=== PATIENT | male | born 1965 | race Caucasian/White ===

== ENCOUNTER 2018-03-18 14:24 | Emergency (ER) | payer SELFPAY ==
[2018-03-18] MEDS ORDERED: Adacel (T-DAP) 0.5 ML VIAL ONE (15:54)
[2018-03-18] MEDS ORDERED: Lidocaine 1% (PF) 30 ML VIAL ONE ×2 (15:54→16:02)
== END 2018-03-18 17:29 | disposition home or self-care (01) ==
LOC: ERS 14:24
DX: S61.215A Laceration without foreign body of left ring finger without damage to nail, initial encounter (principal); F17.210 Nicotine dependence, cigarettes, uncomplicated; Z71.6 Tobacco abuse counseling; Z23 Encounter for immunization; W25.XXXA Contact with sharp glass, initial encounter
CPT/HCPCS: 12001; 90471; 90715; 99406; J2001

== ENCOUNTER 2018-06-16 10:14 | Emergency (ER) | payer SELFPAY ==
[2018-06-16] MEDS ORDERED: Proparacaine 0.5% Opth 15 ML BOT ONE (11:21)
[2018-06-16] MEDS ORDERED: Fluorescein Opthalmic Strip ONE (11:21)
[2018-06-16] MEDS ORDERED: valACYclovir 500 MG TAB PO SCH (11:30)
== END 2018-06-16 11:43 | disposition home or self-care (01) ==
LOC: ERS 10:14
DX: B02.9 Zoster without complications (principal); F32.9 Major depressive disorder, single episode, unspecified; F17.210 Nicotine dependence, cigarettes, uncomplicated; Z71.6 Tobacco abuse counseling; Z79.899 Other long term (current) drug therapy
CPT/HCPCS: 99406

== ENCOUNTER 2018-10-16 01:33 | Outpatient (CLI) | payer OTHER ==
[2018-10-16 10:40] LABS: Hemoglobin 14.4 g/dL (14.0-18.0); Mean Corpuscular HGB CONC 31.9 g/dL (32.0-36.0); Mean Corpuscular Hemoglobin 31.1 pg (27.0-31.0); Mean Corpuscular Volume 97.7 fL (78.0-98.0); Platelet Count 256 thou/uL (130-400); RBC Distribution Width 12.5 % (11.5-14.5); Red Blood Cell (RBC) Count 4.62 mill/uL (4.70-6.10)
[2018-10-16 10:48] LABS: INR-International Normal Ratio 0.9; Prothrombin Time 12.4 SEC (12.0-14.7)
[2018-10-16 10:59] LABS: Anion Gap 15 mmol/L (10-20); BUN (Urea Nitrogen) 12 mg/dL (8.4-25.7); Calc. Creatinine Clearance 0 mL/min (70-130); Calcium 9.3 mg/dL (7.8-10.44); Carbon Dioxide 23 mmol/L (22-29); Chloride 104 mmol/L (98-107); Estimated GFR-MDRD Greater than 90; Glucose 81 mg/dL (70-105); Potassium 4.2 mmol/L (3.5-5.1); Sodium 138 mmol/L (136-145)
== END 2018-10-16 01:34 | disposition home or self-care (01) ==
LOC: LABBT 01:33
PROVIDERS: ATTEND Orthopaedic Surgery
DX: Z01.818 Encounter for other preprocedural examination (principal)
CPT/HCPCS: 80048; 85027; 85610; 86850; 86900; 86901; 87081; 93005; 93010

== ENCOUNTER 2018-10-16 14:30 | Inpatient (IN) | payer OTHER ==
[2018-10-16 09:16] VITALS: BMI 26.9
[2018-10-21] MEDS ORDERED: Fentanyl 100 MCG/2 ML VIAL ONE ×4 (11:06→13:57)
[2018-10-21] MEDS ORDERED: Lidocaine 1.5% w/Epi 1:200K 30 ML VIAL (Epid Use) ONE (11:06)
[2018-10-21] MEDS ORDERED: Midazolam HCl 2 mg/2 ml Vial ONE (11:06)
[2018-10-21] MEDS ORDERED: Ropivacaine 0.2% HCl/PF 20 ML ONE (11:13)
[2018-10-21] MEDS ORDERED: Zolpidem Tartrate 5 MG TAB PO PRN ×2 (11:14→12:15)
[2018-10-21] MEDS ORDERED: traMADol HCl 50 MG TAB PO PRN ×3 (11:14→12:15)
[2018-10-21] MEDS ORDERED: Promethazine HCl 25 MG/ML VIAL IM PRN ×2 (11:14→12:15)
[2018-10-21] MEDS ORDERED: Acetaminophen 325 MG TAB PO PRN (11:14)
[2018-10-21] MEDS ORDERED: HYDROcodone/Acetaminophen 10/325 mg Tablet PO PRN ×2 (11:14)
[2018-10-21] MEDS ORDERED: Morphine 4 MG/ML VIAL SLOW IVP PRN (11:14)
[2018-10-21] MEDS ORDERED: Ondansetron PF 4 MG/2 ML Vial IVP PRN ×2 (11:14→12:15)
[2018-10-21] MEDS ORDERED: diphenhydrAMINE 25 MG CAP PO PRN ×2 (11:14→12:15)
[2018-10-21] MEDS ORDERED: Tranexamic Acid 1,000 MG in Sodium Chloride 0.9% 100 ML IVPB SCH (11:15)
[2018-10-21] MEDS ORDERED: CEFAZOLIN/Water 2 GM/20 ML SYRINGE SLOW IVP SCH (11:15)
[2018-10-21] MEDS ORDERED: Neomycin-Polymyxin 1 ML AMP ONE (11:20)
[2018-10-21] MEDS ORDERED: HYDROcodone/Acetaminophen 5/325 mg Tablet PO PRN (12:15)
[2018-10-21] MEDS ORDERED: Hydrocerin (Eucerin) Cream 120 gm Jar TOP PRN (12:15)
[2018-10-21] MEDS ORDERED: Promethazine HCl 25 MG SUPP PR PRN (12:15)
[2018-10-21] MEDS ORDERED: Naloxone HCl 0.4 mg/ml Vial IV PRN (12:15)
[2018-10-21] MEDS ORDERED: diphenhydrAMINE 50 MG/ML VIAL IM PRN (12:15)
[2018-10-21] MEDS ORDERED: Bupivacaine 0.25% 10 ML VIAL EPIDURAL PRN (12:15)
[2018-10-21] MEDS ORDERED: diphenhydrAMINE 50 MG/ML VIAL IVP PRN (12:15)
[2018-10-21] MEDS ORDERED: Naloxone HCl 0.4 mg/ml Vial IVP PRN (12:15)
[2018-10-21] MEDS ORDERED: Fentanyl 5 mcg/Bup 0.075% Cadd 100 ML EPIDURAL ONE (13:44)
[2018-10-21] MEDS ORDERED: Tranexamic Acid 1,000 MG/10 ML VIAL ONE (13:49)
[2018-10-21] MEDS ORDERED: Lidocaine 1% PF 5 ML VIAL ONE (13:55)
[2018-10-21] MEDS ORDERED: Dexamethasone 20 MG/5 ML VIAL ONE (13:55)
[2018-10-21] MEDS ORDERED: ePHEDrine 50 MG/ML VIAL ONE (13:55)
[2018-10-21] MEDS ORDERED: PROPOFOL 200 MG/20 ML VIAL ONE (13:55)
[2018-10-21] MEDS ORDERED: Rocuronium Bromide 10 MG/ML (10ML VIAL) ONE (13:55)
[2018-10-21] MEDS ORDERED: Glycopyrrolate 0.2 MG/ML 5 ML SYRINGE ONE (13:55)
[2018-10-21] MEDS ORDERED: Ketorolac Tromethamine 30 MG/ML VIAL IVP SCH (14:00)
--- NOTE | 2018-10-21 14:57 | RAD ---
TWO VIEWS RIGHT HIP: HISTORY: Total hip arthroplasty. COMPARISON: None. FINDINGS: Expected postoperative changes. Alignment is near anatomic. IMPRESSION: Two views right hip. Findings compatible with recent arthroplasty. POS: LOIS
--- NOTE | 2018-10-21 16:40 | OP ---
DATE OF PROCEDURE: 10/21/2018 PREOPERATIVE DIAGNOSIS: Severe arthritis, right hip. POSTOPERATIVE DIAGNOSIS: Severe arthritis, right hip. PROCEDURE PERFORMED: Right total hip replacement. ANESTHESIA: General. DESCRIPTION OF PROCEDURE: The patient had an epidural placed prior to surgery. He was given perioperative IV antibiotics, taken to the operating room, placed in supine position. Satisfactory general anesthesia was performed. The patient was then placed in the left lateral decubitus position. All bony prominences were well padded. The right hip and lower extremity were sterilely prepped and draped in usual fashion. Incision was made in the lateral aspect of the hip, centered over the greater trochanter approximately 8 inches in length and an anterior lateral approach was made to the hip joint. The anterior capsule was excised. There was a bony deformity at the intercondylar region, which was consistent with previous fractured hip that the patient has a history of. After the anterior capsule was excised, the hip joint was dislocated. Oscillating saw was used to cut the femoral head off. The femoral head was measured at 58 mm. There was no articular cartilage over the femoral head and the femoral head was very deformed. There was also no articular cartilage in the acetabulum. The soft tissue around the acetabulum was removed. The posterior capsule ligaments were incised. The proximal femur was retracted posteriorly and the acetabulum was prepared by reaming the acetabulum in slight abduction and flexed position. It was reamed up to 57 mm and a Wyocena BuscoTurnouy acetabular shell was impacted into the acetabulum, had excellent fit. We made sure that there was correct abduction and anteversion. One 6.5 cancellous screw was placed, which provided excellent fixation as well. A +10 degree acetabular liner was locked into the shell and the proximal femur was then addressed initially with a box osteotome, then with a hand Charnley reamer and was then sequentially reamed up to 11 mm and then, the proximal femur was prepped with a proximal femur rasp. The calcar was reamed and different length necks with a 38 mm head was tried. The +5 neck with a 36 mm femoral head had excellent stability and allowed good range of motion. The femoral trial was removed. The hip joint was copiously irrigated with antibiotic solution using the high-speed dough panner. The Corail size 11 cementless femoral stem was inserted with excellent fixation. The +5, 36 mm femoral head was impacted over the Aggarwal taper. Hip was again reduced, found to have excellent stability. The hip joint was then closed using #2 Vicryl for the anterior fibers of the adductor muscle, #2 Vicryl for the iliotibial band, 0 Vicryl for the subcutaneous tissue, and skin was closed with briseida. Sterile dressing was applied. The patient was then placed in supine position. He was awakened, extubated, and transferred to recovery room in stable condition. ESTIMATED BLOOD LOSS: 200 mL. COMPLICATION: None. Job ID: [id number]
[2018-10-21] MEDS: CEFAZOLIN 2 GM in Premix Bag 1 BAG IVPB SCH (18:01)
[2018-10-21] MEDS: Ketorolac Tromethamine 30 MG/ML VIAL IVP SCH (18:02)
[2018-10-21] MEDS: Nicotine 14 MG PATCH TD SCH (18:03)
[2018-10-21] MEDS: Aspirin 81 mg Enteric Coated Tablet PO SCH (21:37)
[2018-10-21] MEDS: HYDROcodone/Acetaminophen 5/325 mg Tablet PO PRN (21:38)
[2018-10-21] MEDS: Famotidine 20 MG TAB PO SCH (21:38)
[2018-10-22] MEDS: Ketorolac Tromethamine 30 MG/ML VIAL IVP SCH ×4 (00:58→18:07)
--- NOTE | 2018-10-22 01:52 | CON ---
DATE OF CONSULTATION: PRIMARY CARE PHYSICIAN: None. PRIMARY TEAM: Orthopedics, Dr. Wilson. REASON FOR CONSULTATION: Medical management. HISTORY OF PRESENT ILLNESS: This is a 52-year-old white male with past medical history of arthritis, who had severe arthritis in his right hip, here for total right hip replacement done this morning. He has no other complaints at this time. PAST MEDICAL HISTORY: Arthritis, especially in the right hip after on-the-job injury 10 years ago. PAST SURGICAL HISTORY: Hernia repair. PSYCHIATRIC HISTORY: Anxiety and depression. SOCIAL HISTORY: The patient smokes a pack per day of cigarettes. Rare alcohol. No illicit drug use. 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 ALLERGIES: LUNESTA (ESZOPICLONE). FAMILY HISTORY: Father with prostate cancer. CURRENT MEDICATIONS: 1. Multivitamin daily. 2. Sertraline 50 mg each morning. 3. Naproxen 500 mg three tablets as needed for pain. REVIEW OF SYSTEMS: CONSTITUTIONAL: No fevers, no chills. EYES: No double vision or blurred vision. ENT: No congestion, drainage, or sore throat. PULMONARY: No coughing, wheezing, or shortness of breath. CARDIOVASCULAR: No chest pain. No palpitations or racing heart. GASTROINTESTINAL: No abdominal pain. No nausea or vomiting. No diarrhea or constipation. GENITOURINARY: No dysuria or hematuria. MUSCULOSKELETAL: See HPI. SKIN: No rashes or other lesions. NEUROLOGIC: No numbness, tingling, or focal weakness. PHYSICAL EXAMINATION: VITAL SIGNS: Blood pressure 110/72, pulse 65, respirations 18, and O2 saturation 96% on room air. GENERAL: This is a well-developed, well-nourished white male, in no acute distress. HEENT: Pupils are equal, round, and reactive to light. Oropharynx clear without lesions, erythema, or exudate. NECK: Supple. No lymphadenopathy. No thyroid nodules or enlargement. No JVD. HEART: Regular rate and rhythm. No murmurs, rubs, or gallops. LUNGS: Clear to auscultation bilaterally. No wheezes, crackles, or rhonchi. ABDOMEN: Soft, nontender to palpation. Normoactive bowel sounds. No hepatosplenomegaly or other masses. EXTREMITIES: The patient has a dressing on his right hip that is clean, dry, and intact. No clubbing, cyanosis, or edema. SKIN: No rashes or other lesions noted. NEUROLOGIC: He has intact sensation and strength in all extremities. No facial droop. LABORATORY DATA: CBC with normal white blood cells and normal hemoglobin, hematocrit, and platelets. Coagulation profile normal. Basic metabolic panel normal. EKG done preoperatively showed normal sinus rhythm with no ST-segment changes, normal EKG. ASSESSMENT: 1. Arthritis with severe arthritis of the right hip, status post right hip replacement. 2. History of anxiety and depression. We will resume the patient's SSRI. 3. Gastrointestinal prophylaxis. We will put the patient on Pepcid twice a day. 4. Tobacco abuse. We will give the patient a nicotine patch while in the hospital and smoking cessation counseling. CODE STATUS: The patient is a full code. Job ID: [id number]
[2018-10-22] MEDS: CEFAZOLIN 2 GM in Premix Bag 1 BAG IVPB SCH (02:54)
[2018-10-22 04:35] LABS: Hemoglobin 10.9 g/dL (14.0-18.0); Mean Corpuscular HGB CONC 32.7 g/dL (32.0-36.0); Mean Corpuscular Hemoglobin 32.2 pg (27.0-31.0); Mean Corpuscular Volume 98.5 fL (78.0-98.0); Mean Platelet Volume 7.9 fL (7.4-10.4); Platelet Count 184 thou/uL (130-400); RBC Distribution Width 12.4 % (11.5-14.5); Red Blood Cell (RBC) Count 3.39 mill/uL (4.70-6.10); White Blood Cell (WBC) Count 9.3 thou/uL (4.8-10.8)
[2018-10-22] MEDS: Fentanyl 5 mcg/Bup 0.075% Cadd 100 ML EPIDURAL SCH ×2 (06:19→23:06)
[2018-10-22] MEDS: Senokot S 8.6-50 MG TAB PO SCH ×2 (08:24→23:06)
[2018-10-22] MEDS: Famotidine 20 MG TAB PO SCH ×2 (08:27→21:53)
[2018-10-22] MEDS: Ferrous Gluconate 324 MG TAB PO SCH ×2 (08:28→18:07)
[2018-10-22] MEDS: Multivit, Therapeutic 1 TAB PO SCH (08:28)
[2018-10-22] MEDS ORDERED: Multivitamin W/ Minerals 1 TAB PO SCH (09:00)
[2018-10-22] MEDS: HYDROcodone/Acetaminophen 5/325 mg Tablet PO PRN ×3 (09:58→18:07)
[2018-10-22] MEDS: Aspirin 81 mg Enteric Coated Tablet PO SCH ×2 (12:06→21:52)
[2018-10-22] MEDS: Nicotine 14 MG PATCH TD SCH (18:09)
[2018-10-23] MEDS: Ketorolac Tromethamine 30 MG/ML VIAL IVP SCH ×3 (00:08→13:15)
--- NOTE | 2018-10-23 01:43 | PRG ---
DATE OF SERVICE: 10/22/2018 The patient is 1-day status post right total hip replacement. The patient is doing well. He was able to ambulate with a walker with physical therapy in the [place] today. He did get a little nauseated. Otherwise, he feels that he is doing very well. The patient has been afebrile. Vital signs been stable. Hemoglobin this morning is 10.9. Right lower extremity is neurovascularly intact. The patient will continue with physical and occupational therapy. Probably will be able to be discharged tomorrow. Job ID: [id number]
[2018-10-23 04:52] LABS: Hemoglobin 11.1 g/dL (14.0-18.0); Mean Corpuscular HGB CONC 32.6 g/dL (32.0-36.0); Mean Corpuscular Hemoglobin 32.7 pg (27.0-31.0); Mean Platelet Volume 7.9 fL (7.4-10.4); Platelet Count 166 thou/uL (130-400); RBC Distribution Width 12.4 % (11.5-14.5); White Blood Cell (WBC) Count 6.8 thou/uL (4.8-10.8)
[2018-10-23] MEDS: HYDROcodone/Acetaminophen 5/325 mg Tablet PO PRN ×2 (05:53→13:14)
[2018-10-23] MEDS: Multivit, Therapeutic 1 TAB PO SCH (08:30)
[2018-10-23] MEDS: Ferrous Gluconate 324 MG TAB PO SCH (08:30)
[2018-10-23] MEDS: Aspirin 81 mg Enteric Coated Tablet PO SCH (08:30)
[2018-10-23] MEDS: Senokot S 8.6-50 MG TAB PO SCH (08:30)
[2018-10-23] MEDS: Famotidine 20 MG TAB PO SCH (08:31)
[2018-10-23 12:01] VITALS: BP 120/75; TEMP 98.4
--- NOTE | 2018-10-23 14:15 | DIS ---
DATE OF ADMISSION: 10/21/2018 DATE OF DISCHARGE: 10/23/2018 HISTORY OF PRESENT ILLNESS: Please see admission history and physical. HOSPITAL COURSE: The patient was worked up medically prior to admission, found to be stable for surgery. On the day of admission, the patient was given an epidural by anesthesia for postoperative analgesia. He was given perioperative IV antibiotics, taken to the operating room. Under general anesthetic, the patient underwent a right total hip replacement. The patient worked with physical therapy on the day of surgery. By date of discharge, he was able to ambulate 400 feet with his walker. He was instructed on hip precautions. The patient remained afebrile. Vital signs remained stable. Hemoglobin on postoperative day #1 was 10.9 and on postoperative day #2, hemoglobin was 11.1. Incision was healing well. Right lower extremity remained neurovascularly intact. The patient was able to be discharged to home. Arrangements have been made for the patient to have physical therapy. He will follow up my office in 2 weeks. DISCHARGE MEDICATIONS: 1. [place] 10 one every 6 hours as needed for pain #50. 2. He can take ibuprofen 800 mg three times a day with meals and take a baby aspirin a day. Job ID: [id number]
== END 2018-10-23 14:30 | disposition home or self-care (01) | DRG 470 ==
LOC: SURG A 10-21 08:58 → SJJU 10-21 16:04
PROVIDERS: ADMIT Orthopaedic Surgery; ATTEND Orthopaedic Surgery
PROC: 0SR903A Replacement of Right Hip Joint with Ceramic Synthetic Substitute, Uncemented, Open Approach (ICD-10-PCS; principal; 2018-10-21)
DX: M16.11 Unilateral primary osteoarthritis, right hip (principal); F41.9 Anxiety disorder, unspecified; F32.9 Major depressive disorder, single episode, unspecified; F17.210 Nicotine dependence, cigarettes, uncomplicated; Z98.890 Other specified postprocedural states; Z88.8 Allergy status to other drugs, medicaments and biological substances; Z71.6 Tobacco abuse counseling
CPT/HCPCS: 36415; 85027; C1776; J1100; J1885; J2001; J2250; J2405; J2704; J2795; J3010; J3490